=== PATIENT | male | born 1930 | race Caucasian/White ===

== ENCOUNTER 2016-08-14 01:30 | Inpatient (IN) ==
[2016-08-14 02:43] LABS: MANUAL DIFF NEEDED? NO
[2016-08-14 03:05] LABS: BASO% 0.4 % (0.0-0.8); EOS# 0.15 X1000 (0.0-0.7); EOS% 2.8 % (0.0-10.0); HEMATOCRIT 32.3 % (42.0-52.0); HEMOGLOBIN 10.6 g/dL (14.0-18.0); IMM GRAN# 0.01 X1000 (0.0-0.04); IMM GRAN% 0.2 % (0.0-0.5); LYMPH# 1.53 X1000 (1.2-3.4); LYMPH% 28.4 % (20.5-51.1); MCH 30.6 PG (27-31); MCHC 32.8 g/dL (33-37); MCV 93.4 FL (81-99); MONO# 0.51 X1000 (0.11-0.59); MONO% 9.5 % (1.7-9.3); NEUT% 58.7 % (42.2-75.2); PLT 313 X1000 (130-400); RBC 3.46 XMIL (4.7-6.1)
[2016-08-14 03:08] LABS: ALBUMIN 3.9 g/dL (3.5-5.0); CALCIUM 9.1 mg/dL (8.8-10.2); MAGNESIUM 1.4 mg/dL (1.5-2.7); POTASSIUM 3.9 mmol/L (3.5-5.1); TOTAL BILIRUBIN 0.3 mg/dL (0.20-1.00); TOTAL PROTEIN 6.3 g/dL (6.3-8.3)
--- NOTE | 2016-08-14 03:11 | EKG Report ---
Test Performed on : 08/14/2016 03:01:19 AM Test Reason : CHEST PAIN Blood Pressure : / mmHG Vent. Rate : 064 BPM Atrial Rate : 072 BPM P-R Int : 000 ms QRS Dur : 096 ms QT Int : 428 ms P-R-T Axes : 000 -36 -11 degrees QTc Int : 441 ms Atrial fibrillation. with premature ventricular or aberrantly conducted complexes. Left axis deviation Abnormal ECG No previous ECGs available Unconfirmed Result
[2016-08-14 03:13] LABS: INR 2.14 (0.86-1.15)
[2016-08-14 03:14] LABS: PTT PL 47.3 Seconds (22.6-43.9)
[2016-08-14 03:20] LABS: BILIRUBIN URINE NEGATIVE (NEGATIVE); BLOOD URINE NEGATIVE (NEGATIVE); CLARITY CLEAR (CLEAR); COLOR YELLOW; GLUCOSE URINE NEGATIVE (NEGATIVE); LEUKOCYTES URINE TRACE (NEGATIVE); NITRITE URINE NEGATIVE (NEGATIVE); PROTEIN URINE TRACE mg/dL (NEGATIVE); UR AMPHETAMINES QUAL NONE DETECTED (NONE DETECT); UR BARBITUATES QUAL NONE DETECTED (NONE DETECT); UR BENZODIAZEPIN QUAL NONE DETECTED (NONE DETECT); UR CANNABINOIDS QUAL NONE DETECTED (NONE DETECT); UR COCAINE QUAL NONE DETECTED (NONE DETECT); UR MDMA QUAL NONE DETECTED (NONE DETECT); UR METHADONE QUAL NONE DETECTED (NONE DETECT); UR METHAMPHETAMINE QUAL PRESUMPTIVE POSITIVE (NONE DETECT); UR OPIATES QUAL NONE DETECTED (NONE DETECT); UR OXYCODONE QUAL NONE DETECTED (NONE DETECT); UR PCP QUAL NONE DETECTED (NONE DETECT); UR TCA QUAL NONE DETECTED (NONE DETECT); UROBILINOGEN URINE NORMAL
[2016-08-14 03:35] LABS: URINE RBC <10 /HPF (<10); URINE WBC <10 /HPF (<10)
[2016-08-14 03:36] LABS: URINE CULTURE PL NEEDED? YES; URINE EPITHELIAL CELLS <10 /HPF (<10); URINE SOURCE CLEAN CATCH
[2016-08-14] MEDS ORDERED: MAGNESIUM SULFATE 1 GM/D5W 1 GM/100 ML IVPB IV ONE (04:15)
--- NOTE | 2016-08-14 04:17 | PROVIDER DOCUMENTATION ---
This chart was entered by Cesia Boland Scribe, acting as scribe for Sy Tyler DO. HPI-Head Injury - General Chief Complaint: Head Injury Stated Complaint: HEAD INJURY FROM FALL Time Seen by Provider: 08/14/16 02:12 Source: patient, family Allergies/Adverse Reactions: Patient Allergies Allergy/AdvReac Type Severity Reaction Status Date / Time ondansetron HCl * AdvReac VOMITING Verified 08/04/14 19:45 [From Zofran (as hydrochloride)] Home Medications: Home Medication List Medication Instructions Recorded Confirmed Last Taken Type Amlodipine Besylate 2.5 mg PO DAILY 08/04/14 08/04/14 Unknown History Cephalexin [Keflex] 500 mg PO 4XDAY #30 capsule 08/04/14 Unknown Rx EZETIMIBE/SIMVAstatin [Vytorin 1 tab PO DAILY 08/04/14 08/04/14 Unknown History 10/20 mg] Folic Acid 0.8 mg PO DAILY 08/04/14 08/04/14 Unknown History Hydrochlorothiazide 30 mg PO DAILY 08/04/14 08/04/14 Unknown History Metformin [Glucophage] 1,000 mg PO DAILY 08/04/14 08/04/14 Unknown History Metoprolol Succinate E.r. [Toprol 25 mg PO DAILY 08/04/14 08/04/14 Unknown History Xl] Omeprazole 20 mg PO DAILY 08/04/14 08/04/14 Unknown History RAMIpril [Altace] 10 mg PO DAILY 08/04/14 08/04/14 Unknown History Ranitidine [Zantac] 150 mg PO BID 08/04/14 08/04/14 Unknown History Rivaroxaban [Xarelto] 15 mg PO DAILY 08/04/14 08/04/14 Unknown History Vitamin B Complex [B Complex] 1 cap PO DAILY 08/04/14 08/04/14 Unknown History - History of Present Illness-Head Injury Nature of Presenting Problem: 85 Y/O M presents to the ER with the complain of laceration and bleeding on head due to Head injury an hour ago [employer]. Pt family states that he tripped and feel on the corner of the dresser hitting his head. Pt has dementia and takes medication for it. Pt denies any symptoms of dizziness and weakness or any other symptoms. Head Injury Location: reports: parietal Onset/Duration: reports: 1 hour ago Timing: reports: still present Method of Injury: reports: fell Injury Associated Symptoms: reports: other (laceration on head) Review of Systems - Adult - REVIEW OF SYSTEMS - ADULT Constitutional: denies: chills, fever Eyes: denies: discharge Ears, Nose, Mouth & Throat: reports: no symptoms reported Cardiovascular: denies: chest pain, palpitations Respiratory: denies: cough, shortness of breath Gastrointestinal: reports: no symptoms reported Genitourinary: reports: no symptoms reported Musculoskeletal: reports: other (laceration on head). denies: neck pain Integumentary: reports: no symptoms reported Neurological: reports: no symptoms reported Psychiatric: reports: no symptoms reported Endocrine: reports: no symptoms reported Hematologic/Lymphatic: reports: no symptoms reported Allergic/Immunologic: reports: no symptoms reported All Other Systems: Reviewed and Negative Past History - Adult - PAST MEDICAL HISTORY-ADULT Review of Records: reports: Old Records Reviewed, Nursing Assessment Review Cardiovascular: reports: CAD, HTN Endocrine/Immune: reports: Diabetes - PRIOR SURGERIES/PROCEDURES Surgical/Procedure History: reports: CABG, cardiac stent (x3), orthopedic ( extremity) - IMMUNIZATION STATUS Childhood Immunizations: See Nurse Assessment Flu Vaccine: See Nurse Assessment Physical Exam- Neurological - Physical Exam-Neuro Initial Vital Signs Reviewed: Yes General Appearance: appears well, alert Eye Exam: bilateral eye: normal inspection, PERRL, EOMI HENMT: normal ENT inspection, TMs normal Head Injury: lacerations. negative: active bleeding (controlled bleeding) Neck: non-tender, full range of motion Respiratory: no pleuratic chest pain, no respiratory distress Cardiovascular: regular rate, rhythm, no edema Extremity: non-tender, normal gait Neurologic: grossly normal, no motor/sensory deficits Integumentary: normal color, warm/dry Psych/Mental Status: normal mood/affect, oriented x 3 Progress - PLAN OF CARE/RESULTS Progress/Plan/Lab Results: Vital Signs - 8 hr 08/14/16 01:59 08/14/16 03:45 08/14/16 03:52 Temperature 98.2 F 98.7 F Pulse Rate 64 76 57 L Respiratory Rate 18 23 13 Blood Pressure 164/057 174/77 159/73 O2 Sat by Pulse Oximetry 100 99 97 Laboratory Results - last 24 hr 08/14/16 08/14/16 08/14/16 02:30 02:30 02:30 WBC RBC Hgb Hct MCV MCH MCHC RDW Std Deviation Plt Count MPV Immature Gran % (Auto) Neut % (Auto) Lymph % (Auto) [place] % (Auto) Eos % (Auto) Baso % (Auto) Immature Gran # (Auto) Neut # (Auto) Lymph # (Auto) [place] # (Auto) Eos # (Auto) Baso # (Auto) PT INR APTT (Factor Assay) D-Dimer Sodium 137 Potassium 3.9 Chloride 100 Carbon Dioxide 25 Anion Gap 13 BUN 22 Creatinine 1.2 Estimated GFR/1.73 m2 57 BUN/Creatinine Ratio 18 Glucose 126 H Calculated Osmolality 279 Calcium 9.1 Magnesium 1.4 L Total Bilirubin 0.30 AST 12 ALT 8 L Alkaline Phosphatase 64 Creatine Kinase 46 Troponin T < 0.010 [id number]-Jiwqahfydtx Pept 1074 H Total Protein 6.3 Albumin 3.9 Globulin 2.0 Albumin/Globulin Ratio 2.0 TSH Free T4 Urine Source Urine Color Urine Clarity Urine pH Ur Specific [place] Urine Protein Urine Ketones Urine Blood Urine Nitrite Urine Bilirubin Urine Urobilinogen Urine Microscopic RBC Urine WBC Urine Microscopic WBC Ur Epithelial Cells Urine Bacteria Urine Glucose Urine Opiates Screen Ur Oxycodone Screen Urine Methadone Screen Ur Barbituates Screen Ur Tricyclics Screen Ur Phencyclidine Scrn Ur Amphetamines Screen U Methamphetamines Scrn Urine MDMA Screen U Benzodiazepines Scrn Urine Cocaine Screen U Cannabinoids Screen Plasma/Serum Ethyl Alc 08/14/16 08/14/16 08/14/16 02:30 02:30 02:30 WBC 5.39 RBC 3.46 L Hgb 10.6 L Hct 32.3 L MCV 93.4 MCH 30.6 MCHC 32.8 L RDW Std Deviation 13.4 Plt Count 313 MPV 8.0 Immature Gran % (Auto) 0.2 Neut % (Auto) 58.7 Lymph % (Auto) 28.4 [place] % (Auto) 9.5 H Eos % (Auto) 2.8 Baso % (Auto) 0.4 Immature Gran # (Auto) 0.01 Neut # (Auto) 3.17 Lymph # (Auto) 1.53 [place] # (Auto) 0.51 Eos # (Auto) 0.15 Baso # (Auto) 0.02 PT 24.0 H INR 2.14 H APTT (Factor Assay) 47.3 H D-Dimer < 0.22 L Sodium Potassium Chloride Carbon Dioxide Anion Gap BUN Creatinine Estimated GFR/1.73 m2 BUN/Creatinine Ratio Glucose Calculated Osmolality Calcium Magnesium Total Bilirubin AST ALT Alkaline Phosphatase Creatine Kinase Troponin T [id number]-Klktchbphzv Pept Total Protein Albumin Globulin Albumin/Globulin Ratio TSH 7.12 H Free T4 1.19 Urine Source Urine Color Urine Clarity Urine pH Ur Specific [place] Urine Protein Urine Ketones Urine Blood Urine Nitrite Urine Bilirubin Urine Urobilinogen Urine Microscopic RBC Urine WBC Urine Microscopic WBC Ur Epithelial Cells Urine Bacteria Urine Glucose Urine Opiates Screen Ur Oxycodone Screen Urine Methadone Screen Ur Barbituates Screen Ur Tricyclics Screen Ur Phencyclidine Scrn Ur Amphetamines Screen U Methamphetamines Scrn Urine MDMA Screen U Benzodiazepines Scrn Urine Cocaine Screen U Cannabinoids Screen Plasma/Serum Ethyl Alc 08/14/16 08/14/16 08/14/16 02:30 02:30 02:50 WBC RBC Hgb Hct MCV MCH MCHC RDW Std Deviation Plt Count MPV Immature Gran % (Auto) Neut % (Auto) Lymph % (Auto) [place] % (Auto) Eos % (Auto) Baso % (Auto) Immature Gran # (Auto) Neut # (Auto) Lymph # (Auto) [place] # (Auto) Eos # (Auto) Baso # (Auto) PT INR APTT (Factor Assay) D-Dimer Sodium Potassium Chloride Carbon Dioxide Anion Gap BUN Creatinine Estimated GFR/1.73 m2 BUN/Creatinine Ratio Glucose Calculated Osmolality Calcium Magnesium Total Bilirubin AST ALT Alkaline Phosphatase Creatine Kinase Troponin T Sja-[id number]-Plcafwfrixq Pept Total Protein Albumin Globulin Albumin/Globulin Ratio TSH 6.90 H Free T4 Urine Source CLEAN CATCH Urine Color YELLOW Urine Clarity CLEAR Urine pH 5.0 Ur Specific [place] 1.020 Urine Protein TRACE A Urine Ketones TRACE Urine Blood NEGATIVE Urine Nitrite NEGATIVE Urine Bilirubin NEGATIVE Urine Urobilinogen NORMAL Urine Microscopic RBC <10 Urine WBC TRACE A Urine Microscopic WBC <10 Ur Epithelial Cells <10 Urine Bacteria 2+ Urine Glucose NEGATIVE Urine Opiates Screen Ur Oxycodone Screen Urine Methadone Screen Ur Barbituates Screen Ur Tricyclics Screen Ur Phencyclidine Scrn Ur Amphetamines Screen U Methamphetamines Scrn Urine MDMA Screen U Benzodiazepines Scrn Urine Cocaine Screen U Cannabinoids Screen Plasma/Serum Ethyl Alc 08/14/16 02:50 WBC RBC Hgb Hct MCV MCH MCHC RDW Std Deviation Plt Count MPV Immature Gran % (Auto) Neut % (Auto) Lymph % (Auto) [place] % (Auto) Eos % (Auto) Baso % (Auto) Immature Gran # (Auto) Neut # (Auto) Lymph # (Auto) [place] # (Auto) Eos # (Auto) Baso # (Auto) PT INR APTT (Factor Assay) D-Dimer Sodium Potassium Chloride Carbon Dioxide Anion Gap BUN Creatinine Estimated GFR/1.73 m2 BUN/Creatinine Ratio Glucose Calculated Osmolality Calcium Magnesium Total Bilirubin AST ALT Alkaline Phosphatase Creatine Kinase Troponin T Gkp-S-Wzipubmojdo Pept Total Protein Albumin Globulin Albumin/Globulin Ratio TSH Free T4 Urine Source Urine Color Urine Clarity Urine pH Ur Specific [place] Urine Protein Urine Ketones Urine Blood Urine Nitrite Urine Bilirubin Urine Urobilinogen Urine Microscopic RBC Urine WBC Urine Microscopic WBC Ur Epithelial Cells Urine Bacteria Urine Glucose Urine Opiates Screen NONE DETECTED Ur Oxycodone Screen NONE DETECTED Urine Methadone Screen NONE DETECTED Ur Barbituates Screen NONE DETECTED Ur Tricyclics Screen NONE DETECTED Ur Phencyclidine Scrn NONE DETECTED Ur Amphetamines Screen NONE DETECTED U Methamphetamines Scrn PRESUMPTIVE POSITIVE A Urine MDMA Screen NONE DETECTED U Benzodiazepines Scrn NONE DETECTED Urine Cocaine Screen NONE DETECTED U Cannabinoids Screen NONE DETECTED Plasma/Serum Ethyl Alc Orders Category Date Time Status Admit - [facility] Routine AdmDCTranf 08/14/16 04:31 Ordered Activity - Strict Bedrest ORDERED Care 08/14/16 04:31 Active Call Admitting on Arrival AT ADMISSION Care 08/14/16 04:32 Active Cardiac Monitoring DIRECTED Care 08/14/16 02:14 Active Neurological Check Q4H Care 08/14/16 04:32 Active Saline Loc NOW Care 08/14/16 02:14 Active Vital Signs Order ARRIVAL TO ROOM Care 08/14/16 04:31 Active Heart Healthy Diet Diet 08/14/16 04:33 Active CHEST-PORTABLE [RAD] Stat Exams 08/14/16 02:15 Taken HEAD/C-SPINE W/O CONTRAST [CT] Stat Exams 08/14/16 02:15 Taken ALCOHOL BLOOD Stat Lab 08/14/16 02:30 Completed CBC WITH ELECTRONIC DIFF [HEME] Stat Lab 08/14/16 02:30 Completed CK PROFILE [SP CHEM] Stat Lab 08/14/16 02:30 Completed COMPREHENSIVE METABOLIC PANEL [CHEM] Stat Lab 08/14/16 02:30 Completed D-DIMER PL [COAG] Stat Lab 08/14/16 02:30 Completed FREE T4 Stat Lab 08/14/16 02:30 Results MAGNESIUM [CHEM] Stat Lab 08/14/16 02:30 Completed PRO B-NATRIURETIC PEPTIDE Stat Lab 08/14/16 02:30 Completed [address]IME WITH INR PL [COAG] Stat Lab 08/14/16 02:[address] [COAG] Stat Lab 08/14/16 02:30 Completed TROPONIN T Q8HR Lab 08/14/16 05:17 Completed TROPONIN T Q8HR Lab 08/14/16 13:00 Ordered TROPONIN T Q8HR Lab 08/14/16 21:00 Ordered TROPONIN T Stat Lab 08/14/16 02:30 Completed TSH Stat Lab 08/14/16 02:30 Completed TSH Stat Lab 08/14/16 02:[address] W/POSS RFLX CULT [URINALYSIS] Stat Lab 08/14/16 02:50 Completed URINE CULTURE [RM] Routine Lab 08/14/16 03:36 Ordered URINE DRUG SCREEN PL Stat Lab 08/14/16 02:50 Completed VITAMIN B12 Stat Lab 08/14/16 02:30 Results 0.9% Sodium Chloride Inj [Ns] 1,000 ml Med 08/14/16 04:26 Active IV 100 mls/hr 0.9% Sodium Chloride Inj [Ns] 1,000 ml Med 08/14/16 04:31 Active IV 80 mls/hr Acetaminophen [Tylenol] Med 08/14/16 04:31 Active 650 mg PO Q6H PRN PRN Magnesium Sulfate 1 gm/D5w Med 08/14/16 04:15 Discontinued 1 gm in 100 ml IV NOW Magnesium Sulfate 2 gm/S.w.i. [Magnesium Sulfate 2 gm/S Med 08/14/16 04:33 Discontinued .w.i] 2 gm in 50 ml IV NOW Ondansetron [Zofran] Med 08/14/16 04:31 Active 4 mg IV Q4H PRN PRN Oxygen Device Routine Oth 08/14/16 04:32 Active Telemetry [OM.EQ] Routine Oth 08/14/16 04:31 Active EKG [EKG] Stat Ther 08/14/16 02:14 Draft Transfer/Admit Order [TRANSFER] Routine Transfer 08/14/16 04:33 Completed Result Diagrams: 08/14/16 02:30 08/14/16 02:30 - EKG 1 Time of EKG reading by physician:: 03:01 EKG Read and Signed by:: Sy Tyler EKG Interpretation (*Must complete 3 of following elements*): Abnormal Rate: 64 (Atrial Fibrillation with premature ventricular or aberrantly conducted complexes) Comments: left axis deviation, Abnormal ECG - CT/MRI 1 CT Study: Cervical Spine, Head Impression: Normal CT Results: Moderate degenerative spondylosis without fracture by radiologist - CONSULTS/PCP/HOSPITALIST Notification #1 *Consult/PCP/Hospitalist*: Dr. Corona Time Discussed: 04:20 Reason/Comments: Dr. Tyler consulted with Dr. Corona about Patient Procedures - LACERATION/WOUND REPAIR/FB Head Wound Location: Other: top of head Wound's Depth, Shape: superficial Prepped with: Hibiclens Wound Repaired with: Quincy-Small (8) Departure - Departure Time of Disposition Decision: 05:00 DIAGNOSIS: Head injury Disposition: ADMITTED INPATIENT 09 Certified Medical Emergency: Emergent Condition: Stable This chart was documented by the indicated scribe, (Cesia Boland, Elvis) and accurately reflects the services I performed and decisions made by Jayson ace Deepak K., DO, as attested by the provider's signature.
[2016-08-14] MEDS ORDERED: NS 1,000 ML IV ONE ×2 (04:26→04:31)
[2016-08-14] MEDS ORDERED: TYLENOL PO PRN (04:31)
[2016-08-14] MEDS ORDERED: ZOFRAN IV PRN (04:31)
[2016-08-14] MEDS ORDERED: MAGNESIUM SULFATE 2 GM/S.W.I. 2 GM/50 ML IVPB IV ONE (04:33)
[2016-08-14 05:20] LABS: FREE T4 1.19 ng/dL (0.93-1.70)
[2016-08-14] MEDS ORDERED: SYNTHROID PO SCH (07:00)
[2016-08-14] MEDS ORDERED: VITAMIN B-12 PO SCH (09:00)
[2016-08-14] MEDS ORDERED: FOLIC ACID PO SCH (09:00)
[2016-08-14] MEDS ORDERED: IMDUR PO SCH (09:00)
[2016-08-14] MEDS ORDERED: LOPRESSOR PO SCH (09:00)
[2016-08-14] MEDS ORDERED: ALTACE PO SCH (09:00)
[2016-08-14] MEDS ORDERED: ARICEPT PO SCH (09:00)
--- NOTE | 2016-08-14 10:30 | Diag Imaging Result Document ---
PROCEDURE NAME: CHEST-PORTABLE - 08/14/2016 PORTABLE CHEST: No comparison exam. FINDINGS: Heart size appears mildly enlarged. There are sternal wires from previous surgery. There is slight prominence of basilar interstitial markings. There is no consolidation, pleural effusion, or pneumothorax identified. IMPRESSION: Mild cardiomegaly. Nonspecific slight prominence of basilar interstitial markings. No discrete pneumonia.
--- NOTE | 2016-08-14 10:34 | Diag Imaging Result Document ---
PROCEDURE NAME: HEAD/C-SPINE W/O CONTRAST - 08/14/2016 CT HEAD WITHOUT CONTRAST: TECHNIQUE: A dose reduction protocol was used. Compared with 08/04/2014. FINDINGS: There are generalized atrophic changes similar to the previous exam. There is no evidence of intracranial hemorrhage, mass effect, or midline shift. There is no evidence of recent infarct, although acute infarcts may not be immediately visible. There is no skull fracture. IMPRESSION: Generalized atrophic changes similar to prior. No visible acute process. No evidence of intracranial injury. CT CERVICAL SPINE WITHOUT CONTRAST: TECHNIQUE: A dose reduction protocol was used. Axial and reformatted sagittal and coronal images are obtained. Compared with 09/03/2014. FINDINGS: There is multilevel degenerative disease. There is associated mild spinal stenosis at C6-7. There is no fracture identified. There is no subluxation seen. There is no precervical soft- tissue swelling identified. There are atherosclerotic calcifications noted at the bilateral carotid bulb regions. IMPRESSION: 1. Multilevel degenerative disease. Associated mild spinal stenosis at C6-7. 2. No evidence of fracture or subluxation. A [employer] physician provided preliminary results at 4:01 a.m. on 08/14/2016.
[2016-08-14 11:17] VITALS: BP 153/76
--- NOTE | 2016-08-14 18:08 | HISTORY AND PHYSICAL ---
CHIEF COMPLAINT: Laceration on his head. HISTORY OF PRESENT ILLNESS: This is an 85-year-old male with a past medical history of dementia, coronary artery disease status post CABG plus stents, hypertension, hypercholesterolemia, diabetes, and A-fib, was brought to the emergency department with a chief complaint of a laceration on his head at the level of the right parietal area. As per the family, this patient tripped and fell on the corner of the dresser, hitting his head. Also as per the family members, his daughter, she states that he has had lately some kind of weakness. When I evaluated this patient, this patient was at his baseline. I evaluated this patient and family members at the bedside. He did not have any complaints other than mild pain at the level of the head. Laboratory was stable except for low magnesium that was 1.4 and was replaced, mildly elevated glucose at 126, and hemoglobin of 10.6. This patient was in stable medical condition, this is why we decided to discharge this patient with follow up by his primary care physician, Dr. Cindy Saxena, [place]. LABORATORY: WBC 5.3, hemoglobin 10.6, hematocrit 32.3, platelets 313,000. Sodium 137, potassium 3.9, chloride 100, bicarbonate 25, BUN 22, creatinine 1.2, glucose 126, calcium 9.1, magnesium 1.4. BNP 1,074. PHYSICAL EXAMINATION: HEENT: Head normocephalic. He has a laceration of about 6-8 cm at the right parietal area with ajith. No signs of bleed. No signs of infection. NECK: Supple. No JVD. No masses. Central trachea. CHEST: Clear to auscultation. No wheezing. No rales. ABDOMEN: Soft, nontender, nondistended. No hepatosplenomegaly. EXTREMITIES: No edema. No clubbing. No cyanosis. NEUROLOGICAL EXAMINATION: This patient is hard of hearing. Alert. He has dementia but he is oriented x2. He moves all 4 extremities. HOME MEDICATIONS: Melatonin 3 mg p.o. at bedtime, ferrous sulfate 325 mg p.o. at bedtime, amlodipine 2.5 mg p.o. at bedtime, simvastatin 5 mg p.o. at bedtime, ferrous sulfate 325 mg p.o. twice a day, vitamin B12 500 mg p.o. daily, metoprolol 25 mg p.o. daily, folic acid 0.8 mg p.o. daily, donepezil 5 mg p.o. daily, ramipril 10 mg p.o. daily, levothyroxine 50 mcg p.o. daily, ranitidine 150 mg p.o. b.i.d., Imdur 60 mg p.o. daily, Xarelto 15 mg p.o. at bedtime, ezetimibe 10 mg p.o. at bedtime, metformin 1000 mg p.o. b.i.d., acetaminophen 650 mg p.o. q.6 hours. ASSESSMENT AND PLAN: 1. Head laceration at the level of the right parietal area. This looks clean. No sign of bleed. Mild pain to palpation around the laceration. 2. Hypertension, stable. Continue with the same treatment. 3. Anemia, stable. Continue with the same treatment. 4. Dementia. Continue with the same medications. 5. Diabetes. Continue with the same medication. This patient is on metformin. 6. Hypothyroidism. Continue with levothyroxine. 7. History of atrial fibrillation. This patient is on anticoagulation. He is on Xarelto. cc: Arnold Doyle MD
[2016-08-14] MEDS ORDERED: MELATONIN PO SCH (21:00)
[2016-08-14] MEDS ORDERED: ZETIA PO SCH (21:00)
[2016-08-14] MEDS ORDERED: FERROUS SULFATE PO SCH (21:00)
[2016-08-14] MEDS ORDERED: KEFLEX PO SCH (21:00)
[2016-08-14] MEDS ORDERED: NORVASC PO SCH (21:00)
[2016-08-14] MEDS ORDERED: ZOCOR PO SCH (21:00)
[2016-08-14] MEDS ORDERED: XARELTO PO SCH (21:00)
--- NOTE | 2016-08-14 21:04 | DISCHARGE SUMMARY ---
ADMISSION DATE: 08/14/2016 DISCHARGE DATE: 08/14/2016 DISCHARGE DIAGNOSES: 1. Head laceration status post stitches/ajith. 2. Hypertension. 3. Diabetes. 4. Dementia. 5. Hypothyroidism. 6. Insomnia. 7. Anemia. HOSPITAL COURSE: 85 years male with multiple comorbidities was brought into the emergency department with a chief complaint of laceration at the level of the right parietal area, upon examination this patient had laceration about 6-8 cm that was cleaned in the emergency department and then they put some stitches/ajith in that area then this patient was transferred to the medical floor for continue monitoring. As per the family member this patient was walking and tripped and fell and hit his head with the corner of the dresser. They denied any dizziness, this patient did not blackout. When I evaluated this patient this morning this patient was doing fine, this was his baseline. He was not complaining of pain. A CT of the head was negative so we decided to discharge this patient with active followup by his primary care physician Dr. White and also we recommended to remove the ajith between 10 and 12 days. DISCHARGE MEDICATIONS: Melatonin 3 mg p.o. at bedtime, ferrous sulfate 325 mg at bedtime, amlodipine 2.5 mg p.o. at bedtime, simvastatin 5 mg p.o. at bedtime, ferrous sulfate 325 mg p.o. twice a day, vitamin B12 500 mcg p.o. daily, metoprolol 25 mg p.o. daily, folic acid 0.5 mg p.o. daily, donepezil 5 mg p.o. daily, ramipril 10 mg p.o. daily, levothyroxine 50 mcg p.o. daily, ranitidine 150 mg p.o. b.i.d., isosorbide mononitrate 60 mg p.o. daily, Xarelto 15 mg p.o. at bedtime, 10 mg p.o. at bedtime, metformin 1000 mg p.o. b.i.d., cephalexin 500 mg p.o. q.12 hours for 5 days, acetaminophen 650 mg p.o. q.6 hours p.r.n. pain. PHYSICAL EXAM: Vital signs: Temperature 97.5 degrees, pulse 90, respiratory rate 18, blood pressure 153/76, oxygen saturation 98 on room air. HEENT: Head normocephalic. He has a laceration with staplers at the level of the right parietal area. Neck: Supple. No JVD. No masses. Central trachea. Chest: Clear to auscultation. No wheezing. No rales. Abdomen: Soft, nontender, nondistended. No hepatosplenomegaly. Extremities: No edema. No clubbing. No cyanosis. Neurological: The patient is alert. He is oriented x2. This is his baseline. He has baseline dementia. LABORATORY: WBC 5.3, hemoglobin 10.6, hematocrit 32.3, platelets 313,000. Sodium 137, potassium 3.9, chloride 100, bicarbonate 25, glucose 126, BUN 22, creatinine 1.2, calcium 9.1. FOLLOWUP: Followup by Dr. White in [place], [place]. Also we recommended to remove the ajith in about 10-12 days but he has to be evaluated 1st by the physician or primary care. cc: Arnold Doyle MD
== END 2016-08-14 12:30 | disposition home or self-care (01) ==
LOC: P.ED 01:30 → P.MEDSURG 04:53
PROVIDERS: ATTEND Internal Medicine